=== PATIENT | female | born 1995 | race Caucasian/White ===

== ENCOUNTER 2018-09-14 20:23 | Emergency (ER) | payer MEDICAID, OTHER ==
[~2018-09-14] VITALS: Ht 152.4 cm; Wt 68.0 kg
[2018-09-14] MEDS ORDERED: IBUPROFEN 600MG TABLET PO ONE (22:30)
[2018-09-14] MEDS ORDERED: LIDOCAINE HCL/PF 1% 10 MG/ML 5ML VIAL IJ ONE (23:00)
[2018-09-14] MEDS ORDERED: BACITRACIN ZINC OINT UDPKT TOP ONE (23:00)
[2018-09-15 00:54] VITALS: BP 136/78
== END 2018-09-15 00:54 | disposition home or self-care (01) ==
LOC: ER 20:23
DX: S61.411A Laceration without foreign body of right hand, initial encounter (principal); R22.0 Localized swelling, mass and lump, head; Y08.89XA Assault by other specified means, initial encounter; Y93.89 Activity, other specified; Y92.89 Other specified places as the place of occurrence of the external cause; Y99.8 Other external cause status
CPT/HCPCS: 12001; 70486; 81025; 99284; J3490; Z7610

== ENCOUNTER 2018-10-13 14:52 | Emergency (ER) | payer MEDICAID ==
[~2018-10-13] VITALS: Ht 152.4 cm; Wt 68.2 kg
[2018-10-13 15:13] VITALS: BP 132/86
== END 2018-10-13 20:17 | disposition left against medical advice (07) ==
LOC: ER 14:52
DX: Z53.21 Procedure and treatment not carried out due to patient leaving prior to being seen by health care provider (principal)

== ENCOUNTER 2018-10-14 10:00 | Emergency (ER) | payer MEDICAID ==
[~2018-10-14] VITALS: Ht 152.4 cm; Wt 68.0 kg
[2018-10-14 11:29] VITALS: BP 120/77
== END 2018-10-14 11:30 | disposition home or self-care (01) ==
LOC: ER 10:00
DX: B35.4 Tinea corporis (principal)
CPT/HCPCS: 99283

== ENCOUNTER 2019-02-13 09:26 | Emergency (ER) | payer MEDICAID ==
[~2019-02-13] VITALS: Ht 152.4 cm; Wt 68.0 kg
[2019-02-13 09:50] VITALS: BP 129/81
== END 2019-02-13 10:42 | disposition home or self-care (01) ==
LOC: ER 09:26
DX: L30.9 Dermatitis, unspecified (principal)
CPT/HCPCS: 99282

== ENCOUNTER 2019-07-18 13:11 | Emergency (ER) | payer MEDICAID ==
[~2019-07-18] VITALS: Ht 154.9 cm; Wt 69.0 kg
[2019-07-18 13:22] VITALS: BP 131/65
== END 2019-07-18 15:40 | disposition home or self-care (01) ==
LOC: ER 13:11
DX: S01.21XA Laceration without foreign body of nose, initial encounter (principal); W22.8XXA Striking against or struck by other objects, initial encounter; Y93.89 Activity, other specified; Y92.018 Other place in single-family (private) house as the place of occurrence of the external cause
CPT/HCPCS: 12011; 70160; 99283

== ENCOUNTER 2019-08-14 16:34 | Emergency (ER) | payer MEDICAID ==
[~2019-08-14] VITALS: Ht 152.4 cm; Wt 68.0 kg
[2019-08-14 18:20] LABS: CHLORIDE 105 mEq/L (98-107)
[2019-08-14 18:21] LABS: BASOPHILS % 0.5 % (0.0-2.0); EOSINOPHILS % 1.5 % (0.0-5.0); HEMATOCRIT. 42.9 % (36.0-48.0); HEMOGLOBIN. 14.9 g/dL (12.0-16.0); LYMPHOCYTES % 36.4 % (20.0-50.0); MEAN CORPUSCULAR HEMOGLOBIN 30.9 pg (28.0-32.0); MEAN CORPUSCULAR VOLUME 88.9 fL (81.0-99.0); MEAN PLATELET VOLUME 7.8 fl (7.4-10.4); MONOCYTES % 4.8 % (2.0-8.0); NEUTROPHILS % 56.8 % (40.0-76.0); PLATELET 342 x1000/uL (130-400); RED BLOOD CELL COUNT 4.82 mill/uL (4.2-5.4); RED CELL DISTRIBUTION WIDTH 13.3 % (11.6-14.6)
[2019-08-14 18:31] LABS: B-HCG QUANTITATIVE < 1 mIU/mL (<3)
[2019-08-14 18:52] VITALS: BP 112/65
== END 2019-08-14 20:40 | disposition home or self-care (01) ==
LOC: ER 16:34
DX: E28.2 Polycystic ovarian syndrome (principal)
CPT/HCPCS: 36415; 76830; 76856; 80053; 81025; 84702; 85025; 86850; 86900; 99284

== ENCOUNTER 2019-08-25 12:16 | Emergency (ER) | payer MEDICAID ==
[~2019-08-25] VITALS: Ht 152.4 cm; Wt 68.0 kg
[2019-08-25] MEDS ORDERED: ACETAMINOPHEN 325MG TABLET PO PRN (13:30)
[2019-08-25 13:47] LABS: CHLORIDE 106 mEq/L (98-107)
[2019-08-25 13:48] LABS: BASOPHILS % 0.6 % (0.0-2.0); EOSINOPHILS % 1.7 % (0.0-5.0); HEMATOCRIT. 41.3 % (36.0-48.0); HEMOGLOBIN. 14.4 g/dL (12.0-16.0); MEAN PLATELET VOLUME 7.1 fl (7.4-10.4); MONOCYTES % 4.4 % (2.0-8.0); NEUTROPHILS % 58.3 % (40.0-76.0); PLATELET 314 x1000/uL (130-400); RED BLOOD CELL COUNT 4.65 mill/uL (4.2-5.4)
[2019-08-25 14:02] LABS: CLARITY URINE CLEAR (CLEAR); COLOR URINE RED (YELLOW); KETONES URINE TRACE (NEGATIVE); LEUKOCYTE ESTERASE URINE 1+ (NEGATIVE); NITRITE URINE POSITIVE (NEGATIVE); OCCULT BLOOD URINE NEGATIVE (NEGATIVE); PROTEIN URINE NEGATIVE (NEGATIVE); SPECIFIC GRAVITY URINE 1.031 (1.005-1.030)
[2019-08-25 16:09] VITALS: BP 122/73
== END 2019-08-25 16:11 | disposition home or self-care (01) ==
LOC: ER 12:16
DX: N39.0 Urinary tract infection, site not specified (principal); N93.8 Other specified abnormal uterine and vaginal bleeding; R19.05 Periumbilic swelling, mass or lump
CPT/HCPCS: 36415; 76830; 76856; 80053; 81003; 81025; 85025; 86850; 86900; 99284

== ENCOUNTER 2019-09-17 00:26 | Emergency (ER) | payer MEDICAID ==
[2019-09-17 00:55] VITALS: BP 138/80
[2019-09-17] MEDS ORDERED: ACETAMINOPHEN 500MG TABLET PO ONE (01:15)
[2019-09-17] MEDS ORDERED: GUAIFENESIN-DM 200MG-20MG/10ML UDC PO ONE (01:30)
== END 2019-09-17 02:17 | disposition home or self-care (01) ==
LOC: EDUNIT# 00:26 → ER 00:26
DX: J06.9 Acute upper respiratory infection, unspecified (principal); R50.9 Fever, unspecified; Z03.818 Encounter for observation for suspected exposure to other biological agents ruled out
CPT/HCPCS: 99283

== ENCOUNTER 2022-01-14 18:54 | Emergency (ER) | payer MEDICAID, OTHER ==
[~2022-01-14] VITALS: Ht 152.4 cm; Wt 88.9 kg
[2022-01-14] MEDS ORDERED: SODIUM CHLORIDE 0.9% 1,000 ML IV ONE (20:15)
[2022-01-14 20:56] LABS: CLARITY URINE CLEAR (CLEAR); COLOR URINE ORANGE (YELLOW); KETONES URINE 1+ (NEGATIVE); LEUKOCYTE ESTERASE URINE NEGATIVE (NEGATIVE); NITRITE URINE NEGATIVE (NEGATIVE); OCCULT BLOOD URINE 3+ (NEGATIVE); PH URINE 5.5 (4.5-8.0); PROTEIN URINE 2+ (NEGATIVE); SPECIFIC GRAVITY URINE 1.046 (1.005-1.030); UROBILINOGEN URINE 0.2 E.U./dL (0.2-1.0)
[2022-01-14 22:05] LABS: BASOPHILS % 0.5 % (0.0-2.0); EOSINOPHILS % 0.6 % (0.0-5.0); HEMATOCRIT. 40.8 % (36.0-48.0); HEMOGLOBIN. 13.7 g/dL (12.0-16.0); LYMPHOCYTES % 26.5 % (20.0-50.0); MEAN CORPUSCULAR HEMOGLOBIN 30.1 pg (28.0-32.0); MEAN CORPUSCULAR VOLUME 89.7 fL (81.0-99.0); MONOCYTES % 4.6 % (2.0-8.0); NEUTROPHILS % 67.8 % (40.0-76.0); PLATELET 306 x1000/uL (130-400); RED BLOOD CELL COUNT 4.55 mill/uL (4.2-5.4); RED CELL DISTRIBUTION WIDTH 13.4 % (11.6-14.6)
[2022-01-14 22:08] LABS: CHLORIDE 106 mEq/L (98-107)
[2022-01-14 22:16] LABS: B-HCG QUANTITATIVE 945 mIU/mL (<3)
[2022-01-14 23:15] VITALS: BP 121/66
== END 2022-01-14 23:20 | disposition home or self-care (01) ==
LOC: ER 19:33
DX: O67.8 Other intrapartum hemorrhage (principal); Z3A.01 Less than 8 weeks gestation of pregnancy
CPT/HCPCS: 36415; 76801; 76817; 80053; 81003; 81025; 84702; 85025; 86850; 86900; 86901; 96360; 99284; J7030

== ENCOUNTER 2022-02-16 18:39 | Emergency (ER) | payer OTHER ==
[~2022-02-16] VITALS: Ht 167.6 cm; Wt 73.0 kg
[2022-02-16 18:40] VITALS: BP 134/75
[2022-02-16] MEDS ORDERED: ACETAMINOPHEN 325MG TABLET PO PRN (19:00)
[2022-02-16 19:24] LABS: BASOPHILS % 0.3 % (0.0-2.0); EOSINOPHILS % 1.6 % (0.0-5.0); HEMATOCRIT. 40.9 % (36.0-48.0); HEMOGLOBIN. 14.1 g/dL (12.0-16.0); MEAN CORPUSCULAR VOLUME 89.9 fL (81.0-99.0); MEAN PLATELET VOLUME 7.1 fl (7.4-10.4); MONOCYTES % 9.5 % (2.0-8.0); NEUTROPHILS % 38.6 % (40.0-76.0); PLATELET 263 x1000/uL (130-400); RED BLOOD CELL COUNT 4.55 mill/uL (4.2-5.4); RED CELL DISTRIBUTION WIDTH 13.6 % (11.6-14.6)
[2022-02-16 19:31] LABS: CHLORIDE 106 mEq/L (98-107)
[2022-02-16 19:42] LABS: B-HCG QUANTITATIVE 852 mIU/mL (<3)
== END 2022-02-16 20:49 | disposition home or self-care (01) ==
LOC: ER 18:39
DX: O03.9 Complete or unspecified spontaneous abortion without complication (principal); O46.91 Antepartum hemorrhage, unspecified, first trimester; Z3A.01 Less than 8 weeks gestation of pregnancy; O98.511 Other viral diseases complicating pregnancy, first trimester; Z20.822 Contact with and (suspected) exposure to COVID-19
CPT/HCPCS: 36415; 76801; 76817; 80053; 84702; 85025; 86850; 86900; 86901; 87426; 87804; 93005; 99285; C9803

== ENCOUNTER 2022-08-29 15:14 | Emergency (ER) | payer MEDICAID, OTHER ==
[~2022-08-29] VITALS: Ht 165.1 cm; Wt 79.0 kg
[2022-08-29 20:30] VITALS: BP 126/77
== END 2022-08-29 20:30 | disposition home or self-care (01) ==
LOC: ER 16:56
DX: O20.0 Threatened abortion (principal); Z3A.10 10 weeks gestation of pregnancy; O23.41 Unspecified infection of urinary tract in pregnancy, first trimester; N39.0 Urinary tract infection, site not specified
CPT/HCPCS: 36415; 76801; 76817; 80053; 81003; 84702; 84703; 85025; 99283; J7030; Z7610

== ENCOUNTER 2023-08-28 09:34 | Emergency (ER) | payer MEDICAID, OTHER ==
[~2023-08-28] VITALS: Ht 152.4 cm; Wt 81.6 kg
[~2023-08-28 09:34] MED LIST: CEPH500C2 MT; DOCU-138 MT; FERR325T6 PO; PREN-170 MT; PREN1TAB23 PO
[2023-08-28 09:42] VITALS: O2SAT 100
[2023-08-28 10:00] LABS: BASOPHILS % 0.3 % (0.0-2.0); EOSINOPHILS % 0.8 % (0.0-5.0); HEMATOCRIT. 40.5 % (36.0-48.0); HEMOGLOBIN. 13.5 g/dL (12.0-16.0); LYMPHOCYTES % 30.2 % (20.0-50.0); MEAN CORPUSCULAR HEMOGLOBIN 30.6 pg (28.0-32.0); MEAN CORPUSCULAR HGB CONC 33.3 g/dL (31.0-37.0); MEAN CORPUSCULAR VOLUME 91.8 fL (81.0-99.0); MEAN PLATELET VOLUME 6.6 fl (7.4-10.4); MONOCYTES % 3.7 % (2.0-8.0); PLATELET 331 x1000/uL (130-400); RED BLOOD CELL COUNT 4.41 mill/uL (4.2-5.4); RED CELL DISTRIBUTION WIDTH 13.2 % (11.6-14.6); WHITE BLOOD COUNT 5.5 x1000/uL (4.5-11.0)
[2023-08-28 11:10] LABS: ALANINE AMINOTRANSFERASE 15 IU/L (10-49); ALBUMIN 4.5 g/dL (3.2-4.8); ASPARTATE AMINOTRANSFERASE 22 IU/L (<34); B-HCG QUANTITATIVE 351 mIU/mL (<3); BILIRUBIN TOTAL 0.4 mg/dL (0.1-1.0); CALCIUM 9.1 mg/dL (8.7-10.4); CARBON DIOXIDE 25 mEq/L (21-32); CHLORIDE 104 mEq/L (98-107); CREATININE 0.6 mg/dL (0.6-1.0); GLUCOSE 149 mg/dL (70-105); POTASSIUM 4.1 mEq/L (3.5-5.1); PROTEIN TOTAL 7.4 g/dL (6.0-8.3); SODIUM 136 mEq/L (136-145); UREA NITROGEN BLOOD 10 mg/dL (9-23)
[2023-08-28 11:17] LABS: CLARITY URINE TURBID (CLEAR); COLOR URINE BLOODY (YELLOW); PROTEIN URINE 3+ (NEGATIVE)
[2023-08-28 11:18] LABS: GLUCOSE URINE TRACE (NEGATIVE); KETONES URINE 1+ (NEGATIVE); LEUKOCYTE ESTERASE URINE 2+ (NEGATIVE); NITRITE URINE POSITIVE (NEGATIVE); OCCULT BLOOD URINE 3+ (NEGATIVE)
[2023-08-28 11:20] LABS: SPECIFIC GRAVITY URINE 1.008 (1.005-1.030)
[2023-08-28 11:33] LABS: RBC URINE TNTC /hpf (0-2); SQUAMOUS EPITHELIAL CELL URINE 2+ /lpf (RARE/1+)
[2023-08-28 11:34] LABS: BACTERIA URINE 3+
[2023-08-28 12:37] VITALS: BP 134/78; PULSE 89; RESP 18; TEMP 98.7
[2023-08-28] MEDS ORDERED: CEPH500C2 MT (13:34)
== END 2023-08-28 13:43 | disposition left against medical advice (07) ==
LOC: ER 09:34
DX: N93.9 Abnormal uterine and vaginal bleeding, unspecified (principal)
CPT/HCPCS: 36415; 76801; 80053; 81003; 81025; 84702; 85025; 86850; 86900; 99284